=== PATIENT | male | born 1960 | race Caucasian/White ===

== ENCOUNTER 2023-07-01 07:35 | Day surgery (SDC) | payer OTHER ==
[~2023-07-01] VITALS: Ht 177.8 cm; Wt 97.9 kg
[~2023-07-01 07:35] MED LIST: AMLO5; BUPR150ER; CHLO25 PO; GABA100; Percocet 5-3251 EACH PO; TERB250
[2023-07-01 09:29] VITALS: BP 130/87
== END 2023-07-01 09:31 | disposition home or self-care (01) ==
LOC: ORSCSDS 07:35
PROVIDERS: Internal Medicine Gastroenterology
PROC: 0DBH8ZX Excision of Cecum, Via Natural or Artificial Opening Endoscopic, Diagnostic (ICD-10-PCS; principal; 2023-07-01 08:45)
DX: Z12.11 Encounter for screening for malignant neoplasm of colon (principal); D12.0 Benign neoplasm of cecum; Z80.0 Family history of malignant neoplasm of digestive organs; K57.30 Diverticulosis of large intestine without perforation or abscess without bleeding; Z79.899 Other long term (current) drug therapy
CPT/HCPCS: 88305; J2704; J7120

== ENCOUNTER → 2024-04-28 | Outpatient (CLI) | payer OTHER | LOC: LAB SHORT 07:36 → LAB 07:36 | DX: C44.519 Basal cell carcinoma of skin of other part of trunk (principal); D48.9 Neoplasm of uncertain behavior, unspecified | CPT/HCPCS: 88305 ==

== ENCOUNTER → 2024-05-03 | Outpatient (CLI) | payer OTHER | LOC: LAB SHORT 14:12 → LAB 14:12 | DX: D48.5 Neoplasm of uncertain behavior of skin (principal); L82.1 Other seborrheic keratosis | CPT/HCPCS: 88305 ==

== ENCOUNTER → 2024-05-18 | Outpatient (CLI) | payer OTHER | LOC: LAB SHORT 08:04 → LAB 08:04 | DX: C44.519 Basal cell carcinoma of skin of other part of trunk (principal) | CPT/HCPCS: 88305 ==